=== PATIENT | male | born 1985 | race Two or more races ===

== ENCOUNTER 2024-03-18 21:13 | Emergency (ER) | payer OTHER, SELFPAY ==
[2024-03-18 21:16] VITALS: BP 122/70
--- NOTE | 2024-03-18 21:25 | ED.PDOC.TRB ---
ED Provider Triage
-
Patient seen by provider in Triage?: Seen in Triage
Attestation: A medical screening examination has been initiated by a qualified medical provider. Based on the assessment performed at this time, it has been determined that an emergent medical condition may exist and the patient has been informed
that further medical evaluation and possible additional diagnostic testing may be needed.
HPI: 38yoM here with L sided chest pain that started around 3-4pm. Associated with pain/tingling of L arm. Also having mild dyspnea. No diaphoresis or nausea. No known medical problems.
GENERAL: Alert , in no apparent distress
EYE: No visual abnormalities.
NECK: Trachea midline
ENT: No visible abnormalities.
LUNGS: No acute respiratory distress
NEUROLOGICAL: Alert and oriented
SKIN: Skin intact. No visible changes.
MUSCULOSKELETAL: Moving extremities normally
PSYCH: Normal and appropriate interaction.
This is a medical evaluation conducted in person to initiate diagnostic evaluation and provide initial therapeutics. Please see further documentation by the treating clinician.
No ischemic changes on triage EKG. Cardiac labs and CXR ordered.
[2024-03-18 21:51] LABS: % Basophils 0.8 % (0-2); % Immature Granulocytes 0.2 % (0-0.5); % Monocytes 6.4 % (1.7-9.3); % Neutrophils 50.6 % (42.2-75.2); Absolute Basophils 0.1 10^3/uL (0-0.2); Absolute Eosinophils 0.5 10^3/uL (0-0.7); Absolute Lymphocytes 3.3 10^3/uL (1.2-3.4); Absolute Monocytes 0.6 10^3/uL (0.1-0.6); Absolute Neutrophils 4.6 10^3/uL (1.4-6.5); Hematocrit 38.2 % (39.0-52.0); Hemoglobin 13.9 g/dL (13.0-18.0); Mean Corp Hgb Conc. 36.4 g/dL (33.0-37.0); Mean Platelet Volume 9.2 fL (7.4-10.4); Nucleated Red Blood Cells % 0 % (-); Platelet Count 351 10^3/uL (130-400); Red Blood Cell Count 4.34 10^6/uL (4.70-6.10); Red Cell Dist. Width 12.6 % (11.5-14.5); White Blood Cell Count 9.1 10^3/uL (4.8-10.8)
[2024-03-18 22:09] LABS: Troponin I < 0.012 ng/ml
[2024-03-18 22:11] LABS: ALT (SGPT) 50 U/L (0-50); AST (SGOT) 41 U/L (17-59); Albumin 4.7 g/dl (3.5-5.0); Alkaline Phosphatase 66 U/L (38-126); Blood Urea Nitrogen 20 mg/dl (9-20); Calcium 9.5 mg/dl (8.4-10.2); Carbon Dioxide 21 mmol/L (22-30); Chloride 105 mmol/L (98-107); Glucose 121 mg/dl (70-99); Potassium 4.1 mmol/L (3.5-5.1); Sodium 139 mmol/L (135-145); Total Bilirubin 0.5 mg/dl (0.2-1.3); Total Protein 7.4 g/dl (6.3-8.2); eGFR > 60.00
[2024-03-18 22:30] VITALS: BMI 31.3
[2024-03-18 22:34] VITALS: BP 124/70
[2024-03-18 23:00] VITALS: BP 109/68
--- NOTE | 2024-03-19 00:10 | ED.GENMED ---
History of Present Illness
General
Chief Complaint: Chest Pain
Source: patient
Exam Limitations: none
Time Seen by Provider: 03/18/24 23:34
Nursing documentation reviewed up to this point in time: agreed with
History of Present Illness
History of Present Illness:
38-year-old male with no reported chronic medical issues presents to the emergency room for evaluation of chest pain. Patient reports onset of symptoms around 3 PM while he was riding as a passenger in the car. He reports a sharp 'pinching' pain
in the left chest radiates towards the left shoulder. He says he has associated left arm discomfort and numbness/paresthesias. He denies any associated shortness of breath. He denies any nausea, vomiting, diaphoresis. Denies abdominal pain. He
denies any recent cough, fevers, chills. He denies any trauma or injury. He denies similar symptoms in the past. He denies any known cardiac history or family history of heart disease. He is a smoker, reports occasional alcohol, denies drug use.
Review of Systems
Review of Systems
All Other Systems: ROS reviewed and negative except as documented in HPI and ROS
Constitutional: Denies fever or chills
EENT: Denies sore throat
Respiratory: Denies cough or trouble breathing
Cardiac: Reports chest pain; Denies diaphoresis or palpitations
ABD/GI: Denies abdominal pain, nausea, vomiting or diarrhea
: Denies flank pain
Musculoskeletal: Denies edema, neck pain or back pain
Neurological: Reports numbness; Denies dizzy, headache or weakness
Phy Exam
Physical Exam
Physical Exam:
General: Awake, alert, oriented x3; no acute distress
Head: Normocephalic, atraumatic
Eyes: Conjunctiva normal, pupils equal round reactive to light bilaterally
Throat: Airway intact, handling secretions
Neck: Trachea midline, supple without meningismus
Lungs: Clear to auscultation bilaterally, no wheezing, rales, rhonchi
Heart: Regular rate and rhythm, no murmurs, gallops, or rubs; mildly tender left upper chest wall
Abd: Soft, non distended, nontender
Neuro: Cranial nerves grossly intact, speech fluid, motor and sensory function intact in extremities
Skin: no rash
Extremities: No edema in extremities, equal pulses in all extremities; no reproducible tenderness in the left arm, full range of motion of the shoulder, elbow, wrist with no pain
Scores
Heart Failure Risk
Heart Failure Risk Score: Not Applicable
Heart Score for Chest Pain Patients
STEMI patient?: No
History: Slightly or Non-Suspicious
ECG: Normal
Age: </= 45 years
Risk Factors: 1 or 2 Risk Factors
Troponin: </= Normal Limit
Heart Score for Chest Pain Patients: 1
Heart Score Risk: 2.5% MACE over next 6 weeks
Withdrawal Assessment of Alcohol
Withdrawal Assessment Completed?: Not applicable
Course
Orders/Labs/Results
Orders:
Orders
03/18/24 21:14
Electrocardiogram (*1) Urgent
Reason for Study: Chest Pain
EKG- Treatment ONCE
03/18/24 21:27
CR Chest - 2 Views Urgent
Comment:
Reason For Exam: CP
03/18/24 21:39
Complete Blood Count/With Diff Urgent
Comprehensive Metabolic Panel Urgent
Troponin I Urgent
03/19/24 00:08
CT Chest Pe Study Urgent
Comment:
Reason For Exam: left sided chest pain
03/19/24 00:15
Ketorolac [Toradol] 15 mg IV NOW STA
03/19/24 00:24
PTT Urgent
Prothrombin Time Urgent
Troponin I Urgent
Abnormal Lab Results
03/18/24
21:39
RBC 4.34 L 10^6/uL
(4.70-6.10)
Hct 38.2 L %
(39.0-52.0)
MCH 32.0 H pg
(27.0-31.0)
Carbon Dioxide 21 L mmol/L
(22-30)
Glucose 121 H mg/dl
(70-99)
03/18/24 21:39
03/18/24 21:39
Vital Signs
Initial and Last Documented VS:
Initial Vital Signs
Temp Pulse BP Pulse Ox
36.7 C 84 122/70 98
03/18/24 21:16 03/18/24 21:16 03/18/24 21:16 03/18/24 21:16
Last Documented Vital Signs
Temp Pulse Resp BP Pulse Ox
36.7 C 89 22 104/77 98
03/18/24 21:16 03/19/24 01:25 03/19/24 01:25 03/19/24 01:25 03/19/24 01:25
MDM/Problems Addressed
Differential Diagnosis Includes:
ACS/angina, PE, aortic dissection, costochondritis, GERD, pneumothorax, cervical radiculopathy
MDM/Problems Addressed:
38-year-old male presents to the emergency room for evaluation of constant pinching chest pain radiates towards the arm associate with some paresthesias left upper extremity. No exertional symptoms. Vitals normal. Exam as above. EKG shows no
STEMI. He had labs sent in triage including a CBC and a CMP which were unremarkable. Initial troponin undetectable�repeat pending. Chest x-ray reviewed by me shows no acute disease. While he does have some slight reproducible tenderness in the
left upper chest and certainly this could be costochondritis or even just a cervical radiculopathy he is reporting rather abrupt onset while at rest without any inciting trauma or event. Will check CT angio to rule out dissection or PE. Reassess
after the above.
CT angio negative for PE or aortic dissection. He did have some coronary artery calcification noted incidentally on CT. Patient very well-appearing, repeat troponin is also undetectable�rules out for acute VA. Suspect that this may
costochondritis or cervical radiculopathy; improved with some Toradol. With coronary calcification on CT, will refer to cardiology for outpatient follow-up. No clear indication for admission at this point. Spoke to patient about results and
follow-up plan, he is comfortable to this. All questions answered.
*Radiology
Radiology exam reviewed: preliminary read by ED provider and radiology read reviewed
*Pulse Oximetry
Patient hypoxic: no
*EKG
Interpreted by ED Provider?: Yes
Heart Rate: 76
Rate: normal
Rhythm: sinus
[place]: normal axis
Interval: normal interval
QRS Pattern: normal QRS
Ischemia: no ischemia
*Critical Care Note
Total Time (30-74mins, 75-104mins- exclusive of procedures): Not Applicable
Data Reviewed
Source: patient and spouse
ED Attending Note
-
Portions of this chart may have been created with voice recognition software.� Occasional wrong word or��sound alike� substitutions may have occurred due to the inherent limitations of voice recognition software.
Discharge Plan
Departure
Patient Disposition: Home (Routine Discharge)
Date of Disposition: 03/19/24
Time of Disposition: 01:58
Patient with high blood pressure during this ER visit?: No
Discharge Problem:
Chest pain
Instructions: Chest Pain CBC Follow Up
Prescriptions:
No Action
No Current Medications
0
Referrals:
NONE,* [Family Provider] -
Dario Herrera MD [Active] - Call in 1-3 days for appt
Activity Restrictions/Additional Instructions:
Thank you for visiting the Emergency Department at [facility].
1. Please schedule a follow up appointment as directed. Call first thing tomorrow morning to make an appointment.
2. If indicated, please take your medications as instructed and indicated on discharge paperwork.
3. If any of your symptoms do not improve, or persist, or become more severe within 6-12 hours, please return to the emergency department for further care.
4. Please return to the emergency department if you develop a headache, neck pain/stiffness, fever greater than 100.4F, chest pain, shortness of breath, persistent nausea, vomiting, slurred speech, difficulty walking, numbness/tingling, weakness,
signs of infection or any other symptoms that are worrisome to you.
Please call [phone] if you have any questions.
Interventions
Interventions:
*Risk Screen - Suicide Last Done: 03/18/24 21:15
*General Assessment Last Done: 03/18/24 22:30
*Neglect/Abuse Screening Last Done: 03/18/24 21:16
*ED COVID-19 Vaccine History Last Done: 03/18/24 22:30
ED- Cardiac Assessment Last Done: 03/18/24 22:30
Discharge Date and Time
Print Language: [place]
[2024-03-19] MEDS: TORADOL 15 MG IV (00:27)
[2024-03-19 00:56] LABS: Troponin I < 0.012 ng/ml
[2024-03-19 00:59] LABS: APTT 28.9 Sec (23.4-35.0)
[2024-03-19 01:00] VITALS: BP 102/69
[2024-03-19 01:25] VITALS: BP 104/77
[2024-03-19 02:00] VITALS: BP 103/70
== END 2024-03-19 02:05 | disposition home or self-care (01) ==
LOC: EMR 21:13
PROVIDERS: Emergency Medicine; EMERGENCY PHYSICIAN Emergency Medicine
DX: R07.89 Other chest pain (principal); F17.200 Nicotine dependence, unspecified, uncomplicated
CPT/HCPCS: 99285; 96374; 71046; 71275; 80053; 84484; 85025; 85610; 85730; 93005; Q9967